=== PATIENT | male | born 1960 | race Caucasian/White ===

== ENCOUNTER 2016-07-01 16:09 | Emergency (ER) | payer OTHER ==
[2016-07-01 17:51] LABS: HEMOGLOBIN 13.4 gm/dl (14.0-17.5); RED BLOOD COUNT 4.5 M/UL (4.20-5.50); WHITE BLOOD COUNT 8.9 K/UL (4.5-11.0)
== END 2016-07-01 19:15 | disposition short-term general hospital (02) ==
LOC: ER1 16:09
PROVIDERS: Family Medicine
DX: N17.9 Acute kidney failure, unspecified (principal); N20.1 Calculus of ureter; I10 Essential (primary) hypertension
CPT/HCPCS: 36415; 80053; 81001; 82150; 83690; 85025; 96361; 96374; 96375; 99284; J2270; J2405